=== PATIENT | male | born 1990 | race Caucasian/White ===

== ENCOUNTER 2016-05-14 15:27 | Emergency (ER) | payer OTHER ==
[2016-05-14 15:54] VITALS: BP 154/70
[2016-05-14] MEDS ORDERED: Ibuprofen TAB* 400 MG PO ONE (17:51)
--- NOTE | 2016-05-14 18:46 | RAD ---
HISTORY: Lateral right foot pain, trauma COMPARISONS: February 20, 2015 VIEWS: 3, Frontal, lateral, and oblique views of the right foot FINDINGS: BONE DENSITY: Normal. BONES: There is no displaced fracture. JOINTS: There is no arthropathy. ALIGNMENT: There is no dislocation. SOFT TISSUES: Unremarkable. OTHER FINDINGS: None. IMPRESSION: NO ACUTE OSSEOUS INJURY. IF SYMPTOMS PERSIST, RECOMMEND REPEAT IMAGING.
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
--- NOTE | 2016-05-14 18:48 | RAD ---
HISTORY: Trauma, neck pain COMPARISONS: None VIEWS: 3, Frontal, lateral, and open-mouth odontoid views of the cervical spine. FINDINGS: The cervical spine is visualized from the skull base through T1. ALIGNMENT: There is straightening of the normal cervical lordosis. VERTEBRAL BODIES: The odontoid process is intact. The atlantoaxial intervals are symmetric. JOINTS: There is no subluxation or dislocation. The facet joints are unremarkable. INTERVERTEBRAL DISCS: The intervertebral disc heights are normal. SOFT TISSUE: The prevertebral soft tissues are normal. OTHER: The skull base is normal. The lung apices are clear. IMPRESSION: NO ACUTE OSSEOUS INJURY TO THE CERVICAL SPINE
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
== END 2016-05-14 19:50 | disposition home or self-care (01) ==
LOC: ED 15:27
DX: S60.221A Contusion of right hand, initial encounter (principal); S93.601A Unspecified sprain of right foot, initial encounter; V49.9XXA Car occupant (driver) (passenger) injured in unspecified traffic accident, initial encounter; Y93.9 Activity, unspecified; Y92.9 Unspecified place or not applicable; Y99.9 Unspecified external cause status; S13.4XXA Sprain of ligaments of cervical spine, initial encounter
CPT/HCPCS: 72040; 72070; 99282; A9270-GY

== ENCOUNTER 2016-08-07 14:38 | Emergency (ER) | payer OTHER ==
[2016-08-07 15:00] VITALS: BP 119/81
--- NOTE | 2016-08-07 16:04 | RAD ---
HISTORY: Head injury, pain COMPARISONS: None TECHNIQUE: Multiple contiguous axial CT scans were obtained of the head without intravenous contrast. FINDINGS: HEMORRHAGE/INFARCT: There is no hemorrhage or acute infarct. MASSES/SHIFT: There is no mass or shift. EXTRA-AXIAL SPACES: There are no extra-axial fluid collections. SULCI AND VENTRICLES: The sulci and ventricles are normal in size and position for the patient's stated age. CEREBRUM: There are no focal parenchymal abnormalities. BRAINSTEM: There are no focal parenchymal abnormalities. CEREBELLUM: There are no focal parenchymal abnormalities. VESSELS: The vessels are grossly normal. PARANASAL SINUSES: The paranasal sinuses are clear. ORBITS: The orbits are unremarkable. BONES AND SOFT TISSUE: No bone or soft tissue abnormalities are noted. OTHER: None IMPRESSION: NO ACUTE INTRACRANIAL PATHOLOGY.
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
== END 2016-08-07 17:00 | disposition home or self-care (01) ==
LOC: UCEAST 14:38
DX: S06.0X0A Concussion without loss of consciousness, initial encounter (principal); S00.93XA Contusion of unspecified part of head, initial encounter; S16.1XXA Strain of muscle, fascia and tendon at neck level, initial encounter; Y04.0XXA Assault by unarmed brawl or fight, initial encounter
CPT/HCPCS: 70450; 99211; G0463

== ENCOUNTER 2017-05-10 08:15 | Day surgery (SDC) | payer BC, OTHER ==
--- NOTE | 2017-04-28 16:51 | HP ---
PREOPERATIVE HISTORY AND PHYSICAL: DATE OF ADMISSION/SURGERY: 05/10/17 DATE OF OFFICE VISIT: 04/27/17 ATTENDING SURGEON: Dr. Piper Egan * (DICTATED BY NEEL EPREYRA) PROCEDURE: Right shoulder arthroscopic decompression, debridement, excision of distal clavicle fossa, possible subpectoral biceps tenodesis. CHIEF COMPLAINT: Right shoulder pain. HISTORY OF PRESENT ILLNESS: Philip is a 27-year-old male who presents to the clinic for right shoulder pain after an injury that caused impingement, AC joint arthritis, and biceps tendinitis. He has failed conservative measures and has therefore agreed to undergo a right shoulder arthroscopic decompression , debridement, excision of distal clavicle, possible subpectoral biceps tenodesis with Dr. Egan on 05/10/17. PAST MEDICAL HISTORY: No current problems. PAST SURGICAL HISTORY: [place] teeth. MEDICATIONS: Ibuprofen 600 mg 3 times a day as needed for pain. ALLERGIES: No known drug allergies. FAMILY HISTORY: Denies pertinent family history. Denies family history of DVT or PE. SOCIAL HISTORY: He lives with his . 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 He denies tobacco use. He reports occasional alcohol consumption. He is right hand dominant. REVIEW OF SYSTEMS: A 14-point review of systems was reviewed with the patient. Positive for current complaint, otherwise negative. Denies fever, chills, numbness, tingling, chest pain, shortness of breath, history of bleeding disorder, history of DVT or PE. PHYSICAL EXAMINATION GENERAL: Well-developed, well-nourished, 27-year-old male, in no acute distress. VITAL SIGNS: Height 71, weight 144, pulse , blood pressure 130/80, respiratory rate 16, BMI 20.1. HEENT: Normocephalic, atraumatic. PERRLA. Throat clear. NECK: Supple. PULMONARY: Lungs are clear to auscultation bilaterally. No wheezing, rhonchi, or rales. CARDIO: Regular rate and rhythm. S1 and S2. No murmurs, gallops, or rubs. No edema. ABDOMEN: Positive bowel sounds, soft, nontender. NEURO: Alert and oriented x3. Cranial nerves grossly intact. Sensation intact to light touch. MUSCULOSKELETAL: Right upper extremity, skin is intact. No warmth or erythema. Tenderness over the proximal biceps tendon and AC joint in the subacromial space. Forward flexion and abduction to 160, external rotation to 75 , internal rotation to T10. +4/5 strength to supraspinatus testing, +4/5 to infraspinatus and subscap testing. Positive Neer's, Speed's, Siegel-Alex, O 'Darrion's. +2 radial pulses. Sensation intact to light touch distally. DIAGNOSTIC STUDIES: MRI of the shoulder revealed the rotator cuff is intact. Mild biceps tendinitis with AC joint arthritis as well as impingement. IMPRESSION: Acromioclavicular joint arthritis, biceps tendinitis, impingement. PLAN: The patient is scheduled to undergo a right shoulder arthroscopic decompression, debridement, excision of distal clavicle, and possible subpectoral biceps tenodesis with Dr. Egan on 05/10/17. He will return to the office in 10 to 14 days postop for followup and suture removal. Percocet was sent to the patient's pharmacy for postop pain management and Keflex was sent for antibiotic prophylaxis. NEEL PEREYRA [id number]/[facility] #: [id number] [facility]
[~2017-05-10 08:15] MED LIST: Buffered Lidocaine 0.9% SYRIN* 5 ML/SYR SYRINGE INTRADERM ONE; Naloxone* 0.4 MG/ML 1 ML VIAL IV PRN; Ondansetron INJ* 2 MG/ML VIAL IV PRN; Sodium Citrate/Citric Acid* 15 ML UDC ONE; Sodium Citrate/Citric Acid* 15 ML UDC PO ONE; ceFAZolin 2 GM in 100 MLS NS (*) BAG IVPB ONE; fentaNYL* 50 MCG/ML 2 ML VIAL (100 MCG VIAL) IV PRN
[2017-05-10] MEDS ORDERED: ROPIVACAINE 5 MG/ML 30 ML BTL (0.5%) ONE (08:57)
[2017-05-10] MEDS ORDERED: Bupivacaine 0.25% SDV* 30 ML ONE (09:34)
[2017-05-10] MEDS ORDERED: Lidocaine 1% MPF wEPI 200,000* 30 ML SDV ONE (09:34)
[2017-05-10] MEDS ORDERED: Midazolam* 1 MG/ML 2 ML VIAL (2 MG) ONE (10:19)
[2017-05-10] MEDS ORDERED: Propofol* 10 MG/ML 20 ML BTL IV PUSH ONE (10:19)
[2017-05-10] MEDS ORDERED: Lidocaine 2% PF * 5 ML VIAL ONE (10:19)
[2017-05-10] MEDS ORDERED: fentaNYL* 50 MCG/ML 2 ML VIAL (100 MCG VIAL) ONE (10:20)
[2017-05-10] MEDS ORDERED: methylPREDNISolone ACETATE 80* 80 MG/ML 1 ML VIAL ONE (11:31)
[2017-05-10 12:22] VITALS: BP 134/78
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
== END 2017-05-10 12:58 | disposition home or self-care (01) ==
LOC: OREAST 08:15
PROVIDERS: ATTEND Orthopaedic Surgery
DX: M19.011 Primary osteoarthritis, right shoulder (principal); M75.21 Bicipital tendinitis, right shoulder; M75.41 Impingement syndrome of right shoulder
CPT/HCPCS: A9270-GY; C1776; J1040; J2001; J2250; J2704; J2795; J3010

== ENCOUNTER 2018-01-31 10:05 | Emergency (ER) | payer OTHER ==
[2018-01-31 10:18] VITALS: BP 114/68
[2018-01-31] MEDS ORDERED: Ibuprofen TAB* 600 MG PO ONE (11:21)
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
--- NOTE | 2018-01-31 11:57 | RAD ---
INDICATION: Right rib injury. COMPARISON: There are no relevant prior studies available for comparison. TECHNIQUE: 3 views of the right ribs and dual-energy PA views of the chest were obtained. FINDINGS: No fracture or significant focal osseous abnormality is seen. The heart is within normal limits in size. The lungs are clear. There is no evidence for pneumothorax or pleural effusion. IMPRESSION: NO EVIDENCE FOR FRACTURE.
== END 2018-01-31 12:13 | disposition home or self-care (01) ==
LOC: UCEAST 10:05
DX: X58.XXXA Exposure to other specified factors, initial encounter (principal); Y92.9 Unspecified place or not applicable; S29.011A Strain of muscle and tendon of front wall of thorax, initial encounter
CPT/HCPCS: 99212; A9270-GY; G0463